=== PATIENT | male | born 1965 | race Caucasian/White ===

== ENCOUNTER → 2016-12-23 | Outpatient (CLI) | payer BC ==
[~2016-12-23] MED LIST: ALPR1TAB3 PO; CLX20 PO; DSY100 PO; FLM4 PO; IBUP-1428 PO; PHEN-876 PO; THIA100T11 PO
[2016-12-23 18:14] LABS: ALT/SGPT 48 U/L (12-78); AST/SGOT 29 U/L (15-37); BLOOD UREA NITROGEN 15 mg/dl (7-18); BUN/CREATININE RATIO 14.8 (10-20); CALCIUM 9.3 mg/dl (8.5-10.1); CARBON DIOXIDE 29 mmol/L (21-32); CHLORIDE 103 mmol/L (98-107); GLUCOSE 100 mg/dl (70-99); POTASSIUM 4.7 mmol/L (3.5-5.1); SODIUM 141 mmol/L (136-145)
[2016-12-23 18:22] LABS: HEMATOCRIT 45.9 % (42-52); MEAN CELL VOLUME 95.8 fL (80-100); MEAN CORPUSCULAR HEMOGLOBIN 33.8 pg (25-34); MEAN CORPUSCULAR HGB CONC 35.3 g/dl (32-36); MEAN PLATELET VOLUME 10.9 fL (7.4-10.4); PLATELET COUNT 141 K/uL (130-400); RED BLOOD COUNT 4.79 M/uL (4.7-6.1)
[2016-12-23 18:25] LABS: ALB/GLOB RATIO 1.2 (0.9-2); ALKALINE PHOSPHATASE 76 U/L (45-117)
== END | disposition home or self-care (01) ==
LOC: C.LABMFLN 12:16
PROVIDERS: ATTEND Family Medicine
DX: R53.83 Other fatigue (principal)

== ENCOUNTER 2022-12-17 07:06 | Observation (INO) ==
[2022-12-17] MEDS ORDERED: XYLOCAINE 1%/SOD BICARB 20 ML VIAL INFIL ONE (07:17)
--- NOTE | 2022-12-17 07:18 | Emergency Department Note ---
History of Present Illness General Chief complaint: Syncope Stated complaint: FALL, CONFUSION, LAC TO HEAD Time Seen by Provider: 12/17/22 07:07 History of Present Illness This is a 57-year-old male that presents to the emergency department via EMS for evaluation of lacerations to the right side of the face, occipital region of the head and altered mental status/confusion. Per EMS the patient was found in the library at his place of employment with a laceration to the right eyebrow region, occipital region of his head and seemed to be confused. EMS were summoned and he was brought here for evaluation. The patient notes he does not recall the events leading up to him being here today. He recalls making it to work and clocking in but then does not remember anything after that. He does not remember any fall. Patient denies any preceding infectious symptoms or fever/chills. Patient denies any weakness. Home Medications Medication Instructions Recorded Confirmed Type ascorbic acid (vitamin C) 250 mg 250 mg PO DAILY 08/12/21 04/13/22 History tablet cholecalciferol (vitamin D3) 25 25 mcg PO DAILY 08/12/21 04/13/22 History mcg (1,000 unit) capsule zinc 50 mg tablet 50 mg PO DAILY 08/12/21 04/13/22 History acetaminophen 650 mg 1,300 mg PO Q12H #120 tabs 04/13/22 04/13/22 Rx tablet,extended release (Tylenol Arthritis Pain) multivitamin (Daily Multi-Vitamin 1 tab PO DAILY #30 tabs 04/13/22 04/13/22 Rx tablet) naproxen 500 mg tablet (Naprosyn) 500 mg PO BID #60 tabs 04/13/22 04/13/22 Rx cyclobenzaprine 10 mg tablet 10 mg PO BID #60 tabs 05/25/22 Rx Allergies Allergy/AdvReac Type Severity Reaction Status Date / Time Penicillins Allergy Unknown . Verified 04/13/22 15:23 Past Med/Surg History Surgical History History of colonoscopy Family History Mother COPD (chronic obstructive pulmonary disease) Father Pancreatic cancer Grandfather (Paternal) No problems noted. Grandfather (Maternal) Lung cancer Other Myocardial infarction Denies family history of Prostate cancer Breast cancer Colorectal cancer Hypertension Social History Smoking Status: Never smoker Second Hand Exposure: No; Hx Alcohol Use: Yes Alcohol type: beer and hard liquor Alcohol Intake Frequency: 2-3 x/Week Hx Substance Use: No Preferred Language: Urdu Communication Ability: Effective Hearing Ability: Normal Color Depositing Machine Tender Required: No Beliefs That Will Affect Care: None marital status: Current Living Situation: Spouse current occupational status: employed How many Children do You have: 1 How many Children do You have Comment: 1 biological son and 3 step daughters Feels Safe at Home: Yes Childhood Exposure to Second-Hand Smoke: Yes Seatbelt Use: always Sunscreen Use: No Review of Systems A total of 10 systems reviewed and were otherwise negative Physical Exam Vital Signs Vital Signs - 24 hr 12/17/22 07:01 12/17/22 07:15 12/17/22 07:16 Temperature 36.4 C L Temperature Source Oral Pulse Rate 74 Pulse Rate from SpO2 Sensor Pulse Rhythm Regular Pulse Strength Normal Respiratory Rate 16 Respiratory Effort / Characteristics Non-Labored Spontaneous Respiratory Depth Normal Respiratory Pattern Regular Blood Pressure 144/85 H Blood Pressure Mean 104 Blood Pressure Position Sitting Pulse Oximetry 99 99 99 Oxygen Delivery Method Room Air Room Air Room Air Oxygen Flow Rate 0 Sepsis Recent Fever Within 48 Hours No Sepsis New/Unexplained Change in Mental Status Yes Sepsis Action Taken by Nursing No Action Required Oxygen Flow Rate - Titration 0 Pulse Oximetry Post Tiitration 99 12/17/22 08:44 12/17/22 08:43 12/17/22 09:00 Temperature Temperature Source Pulse Rate 66 66 76 Pulse Rate from SpO2 Sensor 67 75 Pulse Rhythm Pulse Strength Respiratory Rate 16 19 Respiratory Effort / Characteristics Respiratory Depth Respiratory Pattern Blood Pressure Blood Pressure Mean Blood Pressure Position Pulse Oximetry 99 98 Oxygen Delivery Method Oxygen Flow Rate Sepsis Recent Fever Within 48 Hours Sepsis New/Unexplained Change in Mental Status Sepsis Action Taken by Nursing Oxygen Flow Rate - Titration Pulse Oximetry Post Tiitration 12/17/22 09:30 Temperature Temperature Source Pulse Rate 74 Pulse Rate from SpO2 Sensor 79 Pulse Rhythm Pulse Strength Respiratory Rate 23 Respiratory Effort / Characteristics Respiratory Depth Respiratory Pattern Blood Pressure Blood Pressure Mean Blood Pressure Position Pulse Oximetry 98 Oxygen Delivery Method Room Air Oxygen Flow Rate Sepsis Recent Fever Within 48 Hours Sepsis New/Unexplained Change in Mental Status Sepsis Action Taken by Nursing Oxygen Flow Rate - Titration Pulse Oximetry Post Tiitration VITAL SIGNS - Vital signs reviewed. Stable and afebrile. GENERAL -57-year-old male appearing his stated age. Patient communicates well but at times seems to be looking about the exam room in a confused appearance. He does seem overall jittery/anxious. SKIN - Gross examination of the entire body surface demonstrates right eyebrow laceration and occipital scalp laceration. Laceration to the right eyebrow is in the shape of a "Y" with the branch portion on the medial aspect measuring approximately 2 cm overall. There is also a 2 cm laceration overlying the occipital region of the scalp favoring the right side. This is curvilinear in distribution. HEAD - Normocephalic, Atraumatic. No Mendez's Sign or Raccoon's Eyes. No depressed skull fractures palpable. EYES - PERRL with EOMI bilaterally. Without subconjunctival hemorrhage. Palpebral conjunctiva pink and moist with no injection. EARS - No deformities of external structures noted on gross examination bilaterally. No hemotympanum present. No tympanic perforation noted. Handle of malleus, umbo, cone of light, pars tensa/flaccid all easily visualized. NOSE - Midline and without cyanosis. No epistaxis or clear watery discharge noted. Septum midline without deviation. No septal hematoma noted. No overlying ecchymosis noted. MOUTH/OROPHARYNX - Without perioral cyanosis. Tongue midline with equal elevation of palate bilaterally. No blood noted in the oropharynx. No tonsillar hypertrophy, erythema, or exudates noted. No dental fractures noted. NECK - Cervical collar in place. No tenderness to palpation over the cervical spinous processes. No cervical paraspinal muscle tenderness noted. LUNGS - Chest wall symmetric without accessory muscle use, intercostals retractions, or central cyanosis. No flail chest or depressed fractures noted. No paradoxical chest wall movements noted. No tenderness to palpation across t he anterior and posterior chest lozano. No tenderness with deep inspiration noted against the examiner's applied pressure to the lateral chest lozano. Normal vesicular breath sounds CTA B/L. No wheezes, rales, or rhonchi appreciated. CARDIAC - RRR with S1/S2. No murmur, rubs, or gallops appreciated. ABDOMEN - Abdominal contour normal and without pulsations or visible masses. BS normoactive all four quadrants. No rebound tenderness or guarding noted. Negative Lyle's or Woodson Childers's Signs. No tenderness, palpable masses, hepatosplenomegaly, or ascites noted. EXTREMITIES - No gross deformities noted of the extremities. No tenderness to palpation upper or lower extremities. +5/5 strength noted in UE/LE bilaterally. NEUROLOGIC - Cranial nerves II through XII grossly intact. Sensory intact to light touch throughout. PSYCH -patient is alert and oriented to person and place but not time. He does not recall the year. Pt is very pleasant and interacts well with examiner. Course Administered Medications Discontinued Medications Acetaminophen (Acetaminophen 325 Mg Tab) 650 mg PO Q4H PRN PRN Reason: Pain or Fever Stop: 01/16/23 13:20 Last Admin: 12/17/22 13:51 Dose: 650 mg Documented By: ROS Sodium Chloride (Nss 1000ml) 1,000 mls @ 125 mls/hr IV .Q8H CARMENZA Stop: 01/16/23 10:14 Last Infusion: 12/17/22 17:52 Dose: 0 mls/hr Documented By: Admin: 12/17/22 10:33 Dose: 125 mls/hr Documented By: STEFFANIE Lidocaine HCl (Xylocaine 1%/Sod Bicarb 20 Ml Vial) 20 ml INFIL NOW ONE Stop: 12/17/22 07:18 Last Admin: 12/17/22 08:10 Dose: 20 ml Documented By: CONSTANTINO Medical Decision Making Laboratory Data 12/17/22 07:29 12/17/22 07:29 Lab Results 12/17/22 12/17/22 12/17/22 Range/Units 07:29 07:29 07:29 WBC 5.69 (4.8-10.8) K/ul RBC 5.11 (4.70-6.10) M/uL Hgb 16.6 (14.0-18.0) g/dl Hct 47.8 (42.0-52.0) % MCV 93.5 (80.0-100.0) fL MCH 32.5 (25.0-34.0) pg MCHC 34.7 (32.0-36.0) g/dL RDW Std Deviation 44.2 (36.4-46.3) fL RDW Coeff of Michele 12.7 (11.5-14.5) % Plt Count 169 (130-400) K/uL MPV 10.0 (9.4-12.4) fL Immature Gran % (Auto) 1.1 % Neut % (Auto) 53.3 % Lymph % (Auto) 27.8 % Traill % (Auto) 7.0 % Eos % (Auto) 9.7 % Baso % (Auto) 1.1 % Neut # (Auto) 3.04 (1.40-6.50) K/uL Lymph # (Auto) 1.58 (1.2-3.4) K/uL Traill # (Auto) 0.40 (0.11-0.59) K/uL Eos # (Auto) 0.55 H (0-0.50) K/uL Baso # (Auto) 0.06 (0-0.2) K/uL Immature Gran # (Auto) 0.06 (0.01-0.20) K/uL PT (9.0-12.0) Seconds INR (0.9-1.1) APTT (21.0-31.0) Seconds PTT Ratio Sodium 141 (136-145) mmol/L Potassium 4.2 (3.5-5.1) mmol/L Chloride 106 (98-107) mmol/L Carbon Dioxide 26 (21-32) mmol/L Anion Gap 9 (3-11) BUN 13 (6-23) mg/dl Creatinine 1.25 (0.6-1.4) mg/dl Est Cr Clr Drug Dosing 67.8 ml/min Est GFR ( Amer) 72.6 ml/min Est GFR (Non-Af Amer) 62.6 ml/min BUN/Creatinine Ratio 10.4 (10-20) Glucose 102 H (70-99(Fasting)) mg/dl Calcium 9.3 (8.5-10.1) mg/dl Total Bilirubin 0.6 (0.2-1.0) mg/dl AST 18 (13-39) U/L ALT 15 (7-52) U/L Alkaline Phosphatase 80 (34-104) U/L Troponin I High Sens 5.7 (0-20) pg/ml Total Protein 7.3 (6.0-8.3) gm/dl Albumin 4.3 (3.4-5.0) gm/dl Globulin 3.0 (2.5-4.0) gm/dl Albumin/Globulin Ratio 1.4 (0.9-2) TSH (0.300-4.500) uIu/ml Ethyl Alcohol mg/dL < 10.0 (<10.0) mg/dl Adenovirus (PCR) (NotDetected) B. pertussis DNA (PCR) (NotDetected) B.parapertussis DNA PCR (NotDetected) C. pneumoniae DNA (PCR) (NotDetected) Coronavirus OC43 (PCR) (NotDetected) Coronavirus HKU1 (PCR) (NotDetected) Coronavirus 229E (PCR) (NotDetected) SARS-CoV-2 (PCR) (NotDetected) Coronavirus NL63 (PCR) (NotDetected) Human Metapneumovir PCR (NotDetected) Influenza Type A (PCR) (NotDetected) Influenza Type B (PCR) (NotDetected) M. pneumoniae (PCR) (NotDetected) Parainfluenza 1 (PCR) (NotDetected) Parainfluenza 2 (PCR) (NotDetected) Parainfluenza 3 (PCR) (NotDetected) Parainfluenza 4 (PCR) (NotDetected) RSV (PCR) (NotDetected) Entero/Rhino (PCR) (NotDetected) 12/17/22 12/17/22 12/17/22 Range/Units 07:29 07:29 09:31 WBC (4.8-10.8) K/ul RBC (4.70-6.10) M/uL Hgb (14.0-18.0) g/dl Hct (42.0-52.0) % MCV (80.0-100.0) fL MCH (25.0-34.0) pg MCHC (32.0-36.0) g/dL RDW Std Deviation (36.4-46.3) fL RDW Coeff of Michele (11.5-14.5) % Plt Count (130-400) K/uL MPV (9.4-12.4) fL Immature Gran % (Auto) % Neut % (Auto) % Lymph % (Auto) % Traill % (Auto) % Eos % (Auto) % Baso % (Auto) % Neut # (Auto) (1.40-6.50) K/uL Lymph # (Auto) (1.2-3.4) K/uL Traill # (Auto) (0.11-0.59) K/uL Eos # (Auto) (0-0.50) K/uL Baso # (Auto) (0-0.2) K/uL Immature Gran # (Auto) (0.01-0.20) K/uL PT 10.8 (9.0-12.0) Seconds INR 1.0 (0.9-1.1) APTT 22.2 (21.0-31.0) Seconds PTT Ratio 0.8 Sodium (136-145) mmol/L Potassium (3.5-5.1) mmol/L Chloride (98-107) mmol/L Carbon Dioxide (21-32) mmol/L Anion Gap (3-11) BUN (6-23) mg/dl Creatinine (0.6-1.4) mg/dl Est Cr Clr Drug Dosing ml/min Est GFR ( Amer) ml/min Est GFR (Non-Af Amer) ml/min BUN/Creatinine Ratio (10-20) Glucose (70-99(Fasting)) mg/dl Calcium (8.5-10.1) mg/dl Total Bilirubin (0.2-1.0) mg/dl AST (13-39) U/L ALT (7-52) U/L Alkaline Phosphatase (34-104) U/L Troponin I High Sens (0-20) pg/ml Total Protein (6.0-8.3) gm/dl Albumin (3.4-5.0) gm/dl Globulin (2.5-4.0) gm/dl Albumin/Globulin Ratio (0.9-2) TSH 3.400 (0.300-4.500) uIu/ml Ethyl Alcohol mg/dL (<10.0) mg/dl Adenovirus (PCR) Not Detected (NotDetected) B. pertussis DNA (PCR) Not Detected (NotDetected) B.parapertussis DNA PCR Not Detected (NotDetected) C. pneumoniae DNA (PCR) Not Detected (NotDetected) Coronavirus OC43 (PCR) Not Detected (NotDetected) Coronavirus HKU1 (PCR) Not Detected (NotDetected) Coronavirus 229E (PCR) Not Detected (NotDetected) SARS-CoV-2 (PCR) Not Detected (NotDetected) Coronavirus NL63 (PCR) Not Detected (NotDetected) Human Metapneumovir PCR Not Detected (NotDetected) Influenza Type A (PCR) Not Detected (NotDetected) Influenza Type B (PCR) Not Detected (NotDetected) M. pneumoniae (PCR) Not Detected (NotDetected) Parainfluenza 1 (PCR) Not Detected (NotDetected) Parainfluenza 2 (PCR) Not Detected (NotDetected) Parainfluenza 3 (PCR) Not Detected (NotDetected) Parainfluenza 4 (PCR) Not Detected (NotDetected) RSV (PCR) Not Detected (NotDetected) Entero/Rhino (PCR) DETECTED A* (NotDetected) Imaging Data Radiologist's Impression: Cervical Spine CT 12/17/22 07:15 CT cervical spine wo con CLINICAL HISTORY: fall, altered mental status TECHNIQUE: Multidetector row helical CT of the cervical spine was performed without administration of intravenous contrast. Coronal and sagittal reformations were obtained. Automated dose lowering techniques and/or adjustment according to patient size were utilized for this exam. Comparison: None available at the time of this dictation. FINDINGS: No acute fractures or subluxations are identified. Degenerative changes are seen in the visualized spine. The alignment is normal. Soft tissues are unremarkable. IMPRESSION: No evidence of acute bony injury. ACT 112: Negative or not required by law. Electronically signed by: Ezekiel Nicole M.D. 12/17/2022 7:52 AM Chest X-Ray 12/17/22 07:15 XR chest 1V portable CLINICAL HISTORY: fall, altered mental status COMPARISON STUDY: Chest radiograph and chest CT September 16, 2011. FINDINGS: Lung volumes are normal. Lungs are clear. There is no pneumothorax or pleural effusion. Cardiac size is normal. Mediastinal contours are normal. There is no evidence for pulmonary edema. IMPRESSION: No acute cardiopulmonary findings. ACT 112: Negative or not required by law. Electronically signed by: Dutch Aguirre M.D. 12/17/2022 7:[address] 12/17/22 07:15 CT OF THE HEAD WITHOUT CONTRAST CLINICAL HISTORY: fall, altered mental status COMPARISON STUDY: No previous studies for comparison. TECHNIQUE: Helical axial images of the head were obtained without IV contrast. Automated exposure control was utilized for the study. A dose lowering technique was utilized adhering to the principles of ALARA. FINDINGS: No acute intracranial hemorrhage, midline shift or mass effect is present. The ventricular system is unremarkable. The basal cisterns are patent. No extra-axial collections are present. There are no findings to suggest acute dural sinus thrombosis or acute territorial infarct. Right posterior scalp contusion and laceration is present. There is no calvarial fracture. Nasal bone deformities are chronic. There is mild sinus mucosal thickening. IMPRESSION: 1. No acute intracranial findings. 2. Right posterior scalp contusion and laceration. No calvarial fracture. ACT 112: Negative or not required by law. Electronically signed by: Dutch Aguirre M.D. 12/17/2022 8:20 AM MDM Narrative Patient was seen and evaluated as above in room B09. I did discuss presentation with EMS that accompany the patient. Some history was provided by them. Remainder of history obtained from the patient. Remainder of previous history obtained from significant other/daughters. The patient does seem to be altered on arrival and does not recall the year. He continues to repeat himself that he does not recall what caused him to fall. He continues to note that he must have struck his head. He notes a headache. Otherwise no pain. No chest pain or shortness of breath. Patient denies any back pain or abdominal pain. No numbness or tingling the extremities. His tongue protrudes midline without deviation. There is no deficit on examination. Low suspicion for CVA. We will also note that in the setting of visible head trauma thrombolytics are not indicated. After obtaining a thorough history and physical examination the above work up was performed. It is unclear if the patient sustained a mechanical fall and then struck his head and is now experiencing concussion symptoms or if there was a preceding event causing fall that is now leaving him with an altered mental state or if this is also in a postconcussive basis. I did ask the patient if I may reach out to family to establish a baseline and to review last known well time. He noted that would be a good idea and help provide phone numbers. I at 7:34 AM called his daughter Mayra and there was no answer initially. I then 1 minute later at 7:35 AM called the patient's significant other Pauline. No answer. I then received a phone call back at 8:03 AM from Mayra. We discussed plan of care. She noted that this does seem to be an altered baseline compared to her father's baseline. She last talked to her dad about 2 nights ago. He seemed fine at that time. She does note that he had a similar presentation about 1 year ago when he had COVID and sustained a fall and had altered mental status. I then received a phone call back from the patient's significant other at 8:31 AM. She notes that when he went to bed last night around 9:30 PM and he seemed fine. She did not see him upon awakening today and getting ready for work. Frequent reassessments of the patient were completed. At no point did he display any neurovascular deficits. I did recommend that we repair the wounds to the face and head following CT scan of the head and neck. CT imaging was obtained and that is as above. No acute traumatic intracranial findings noted. C-spine is without fracture on CT scan. C-spine collar removed. Patient upon multiple reassessments seem to have some gradual improvement and began to note that he believes he fell in a bathroom 1 floor above the library and recalls seeing blood on the floor from his wounds and then went to clean this up and then believes he may have passed out or fallen again. Please refer to the procedure note below regarding wound repair. At this time with the patient having an episode of altered mental status status with head injury and with unknown mechanism/cause of fall I do believe that further evaluation and management in the inpatient setting is warranted. Patient amenable to this plan. Labs reveal no leukocytosis or concerning anemia. No emergent metabolic disturbance. Coags normal. Troponin within normal limits. TSH reveals euthyroid state. Urinalysis does not suggest infection. UDS pending. EtOH negative. Bio fire positive for rhinovirus and will note that the patient did have some chills upon reassessments later in his stay. Case discussed with the hospitalist service. Please refer to further documentation regarding his stay. EKG reveals normal sinus rhythm at a rate of 66 bpm. QTc 419. QRS 86. No ST elevation. Risks and benefits of performing primary wound closure versus no repair were discussed with the patient who verbalizes understanding. Verbal consent was obtained prior to performing the procedure. 2 cc of 1% buffered lidocaine without epinephrine was used to anesthetize the approximately 2 cm right eyebrow laceration. The wound was cleansed and prepped in the typical sterile fashion utilizing normal saline and Betadine. The wound was sterilely draped. Once proper anesthetization was established, the wound was further examined and demonstrated repairable laceration without deep structure injury or retained foreign body. The wound was copiously irrigated with normal saline and Betadine. The wound was closed using 4 simple, 6-0 nylon sutures with the wound edges being well approximated. Patient tolerated the procedure well. No complications were met. Attention was then turned to the scalp wound. The approximately 2 cm scalp wound was anesthetized with 3 cc of 1% buffered lidocaine without epinephrine. The wound was cleansed and prepped in the typical sterile fashion utilizing normal saline and Betadine. The wound was sterilely draped. Once proper anesthetization was established, the wound was further examined and demonstrated repairable scalp laceration without deep structure injury or retained foreign body. The wound was copiously irrigated with normal saline and Betadine. The wound was closed using 3 guerda with the wound edges being well approximated. Patient tolerated the procedure well. I recommend the facial sutures to be removed in 7 days. I recommend the scalp guerda be removed in 10 days. In the evaluation and treatment of this patient the following differential diagnoses entertained: CVA, TIA, meningitis, encephalitis, concussion, intracranial hemorrhage, skull fracture, among others. Impression & Plan Acute alteration in mental status, Facial laceration, Laceration of scalp, Rhinovirus Discharge Plan Visit Data Chief Complaint: Syncope Stated Complaint: FALL, CONFUSION, LAC TO HEAD ED Provider: Sofía Lozano ED Midlevel Provider: Leno Perez Discharge Problem: Acute alteration in mental status, Facial laceration, Laceration of scalp, Rhinovirus Patient Disposition: Admitted As Inpatient Condition: Good Discharge Instructions Interventions: ED Discharge Assessment Last Done: 12/17/22 12:51
--- NOTE | 2022-12-17 07:38 | XRay Report ---
XR chest 1V portable CLINICAL HISTORY: fall, altered mental status COMPARISON STUDY: Chest radiograph and chest CT September 16, 2011. FINDINGS: Lung volumes are normal. Lungs are clear. There is no pneumothorax or pleural effusion. Car diac size is normal. Mediastinal contours are normal. There is no evidence for pulmonary edema. IMPRESSION: No acute cardiopulmonary findings. ACT 112: Negative or not required by law. Electronically signed by: Dutch Aguirre M.D. 12/17/2022 7:37 AM
--- NOTE | 2022-12-17 07:54 | CT Scan Report ---
CT cervical spine wo con CLINICAL HISTORY: fall, altered mental status TECHNIQUE: Multidetector row helical CT of the cervical spine was performed without administration of intravenous contrast. Coronal and sagittal reformations were obtained. Automated dose lowering techn iques and/or adjustment according to patient size were utilized for this exam. Comparison: None available at the time of this dictation. FINDINGS: No acute fractures or subluxations are identified. Degenerative changes are seen in the visualized sp ine. The alignment is normal. Soft tissues are unremarkable. IMPRESSION: No evidence of acute bony injury. ACT 112: Negative or not required by law. Electronically signed by: Ezekiel Nicole M.D. 12/17/2022 7:52 AM
--- NOTE | 2022-12-17 08:22 | CT Scan Report ---
CT OF THE HEAD WITHOUT CONTRAST CLINICAL HISTORY: fall, altered mental status COMPARISON STUDY: No previous studies for comparison. TECHNIQUE: Helical axial images of the head were obtained without IV contrast. Automated exposure con trol was utilized for the study. A dose lowering technique was utilized adhering to the principles o f ALARA. FINDINGS: No acute intracranial hemorrhage, midline shift or mass effect is present. The ventricular system is unremarkable. The basal cisterns are patent. No extra-axial collections are present. There are no findings to suggest acute dural sinus thrombosis or acute territorial infarct. Right posterior scalp contusion and laceration is present. There is no calvarial fracture. Nasal bone deformities ar e chronic. There is mild sinus mucosal thickening. IMPRESSION: 1. No acute intracranial findings. 2. Right posterior scalp contusion and laceration. No calvarial fracture. ACT 112: Negative or not required by law. Electronically signed by: Dutch Aguirre M.D. 12/17/2022 8:20 AM
[2022-12-17 08:27] LABS: Basophils # (auto) 0.06 K/uL (0-0.2); Basophils % (auto) 1.1 %; Eosinophils # (auto) 0.55 K/uL (0-0.50); Eosinophils % (auto) 9.7 %; Hematocrit (blood only) 47.8 % (42.0-52.0); Hemoglobin 16.6 g/dl (14.0-18.0); Immature Granulocytes # (auto) 0.06 K/uL (0.01-0.20); Immature Granulocytes % (auto) 1.1 %; Lymphocytes # (auto) 1.58 K/uL (1.2-3.4); Lymphocytes % (auto) 27.8 %; Mean Corpuscular Hemoglobin 32.5 pg (25.0-34.0); Mean Corpuscular Hgb Conc 34.7 g/dL (32.0-36.0); Mean Corpuscular Volume 93.5 fL (80.0-100.0); Neutrophils # (auto) 3.04 K/uL (1.40-6.50); Neutrophils % (auto) 53.3 %; Platelet Count 169 K/uL (130-400); RDW Coefficient of Variation 12.7 % (11.5-14.5); RDW Standard Deviation 44.2 fL (36.4-46.3); Red Blood Count 5.11 M/uL (4.70-6.10); White Blood Count 5.69 K/ul (4.8-10.8)
[2022-12-17 08:50] LABS: Partial Thromboplastin Ratio 0.8; Partial Thromboplastin Time 22.2 Seconds (21.0-31.0); Prothrombin Time 10.8 Seconds (9.0-12.0)
[2022-12-17 09:45] LABS: Albumin Level 4.3 gm/dl (3.4-5.0); Bilirubin,Total 0.6 mg/dl (0.2-1.0); Calcium 9.3 mg/dl (8.5-10.1); Potassium 4.2 mmol/L (3.5-5.1)
[2022-12-17 09:51] LABS: Albumin Globulin Ratio 1.4 (0.9-2); BUN Creatinine Ratio 10.4 (10-20); Creatinine Clr Calc Pharmacy 67.8 ml/min; Est GFR (African American) 72.6 ml/min; Est GFR (Non-African American) 62.6 ml/min; Total Protein 7.3 gm/dl (6.0-8.3)
[2022-12-17 09:54] LABS: Troponin I High Sensitivity 5.7 pg/ml (0-20)
[2022-12-17] MEDS ORDERED: SODIUM CHLORIDE 0.9% 1000ML 1,000 ML IV SCH (10:15)
[2022-12-17 10:54] LABS: Bordetella parapertussis PCR Not Detected (NotDetected); Bordetella pertussis PCR Not Detected (NotDetected); Chlamydia pneumoniae PCR Not Detected (NotDetected); Coronavirus 229E PCR Not Detected (NotDetected); Coronavirus CoV-2 (COVID19)PCR Not Detected (NotDetected); Coronavirus HKU1 PCR Not Detected (NotDetected); Coronavirus NL63 PCR Not Detected (NotDetected); Coronavirus OC43PCR Not Detected (NotDetected); Human Metapneumovirus PCR Not Detected (NotDetected); Influenza A PCR Not Detected (NotDetected); Influenza B PCR Not Detected (NotDetected); Mycoplasma pneumoniae PCR Not Detected (NotDetected); Parainfluenza Virus 1 PCR Not Detected (NotDetected); Parainfluenza Virus 2 PCR Not Detected (NotDetected); Parainfluenza Virus 3 PCR Not Detected (NotDetected); Parainfluenza Virus 4 PCR Not Detected (NotDetected); Respiratory Syncytial VirusPCR Not Detected (NotDetected)
[2022-12-17 11:00] LABS: Adenovirus PCR Not Detected (NotDetected); Rhinovirus/Enterovirus PCR DETECTED (NotDetected)
[2022-12-17 12:17] LABS: Appearance Urine Clear (Clear); Bilirubin Urine Negative (Negative); Blood Urine Negative (Negative); Color Urine Yellow; Glucose Urine UA Negative (Negative); Ketones Urine Negative (Negative); Leukocyte Esterase Urine Negative (Negative); Nitrite Urine Negative (Negative); Protein Urine Negative (Negative); Specific Gravity Urine 1.018 (1.000-1.030); Urobilinogen Urine Negative (Negative)
[2022-12-17 13:09] LABS: Amphetamines+Metham, Urine Neg (Neg); Barbiturates, Urine Neg (Neg); Benzodiazepine, Urine Neg (Neg); Cocaine, Urine Pos (Neg); MDMA (Ecstacy), Urine Neg (Neg); Methadone, Urine Neg (Neg); Opiate, Urine Neg (Neg); Phencyclidine, Urine Neg (Neg)
[2022-12-17] MEDS ORDERED: ALUMINUM/MAGNESIUM SUSP 30 ML UDC PO PRN (13:21)
[2022-12-17] MEDS ORDERED: ONDANSETRON INJ 2 MG/ML 2 ML VIAL IV PRN (13:21)
[2022-12-17] MEDS ORDERED: ACETAMINOPHEN 325 MG TAB PO PRN (13:21)
--- NOTE | 2022-12-17 14:12 | History & Physical Report ---
Date of Service December 17, 2022 Assessment & Plan (1) Syncope: Plan: Acute traumatic syncope at least moderate risk Differential diagnosis could be related arrhythmia however it sounds like it may be most likely post micturition syncope or presyncope followed by a vasovagal syncope. Closed head injury with lacerations repaired which could related to a postconcussive syndrome Incidentally noted rhinovirus infection without systemic symptoms Initial screening test positive for cocaine awaiting confirmatory testing patient denies surreptitious drug use Patient be observed for arrhythmia if improved may likely be discharged later in the day Admission and Anticipated Discharge Date Admission Date: December 17, 2022 History of Present Illness Primary Care Provider: Maximiliano Shelton MD 57-year-old male brought in after being found in bathroom at [facility] with lacerations on his head. Patient had a syncopal event. Patient states he is prone to syncope if he has a severe event or anxiety. Patient states that he had not eaten any breakfast typically reports work at 5 AM and wakes at 3:30 AM. The patient ate a small dinner the night before. He took a swig or chug of Mucinex PM to try to help him sleep around 930 to 10 PM the day before admission. Patient reportedly was urinating when he became lightheaded fell forward and struck his head on something in the bathroom then landed on the ground. He then noticed blood on the ground, he did not completely pass out on that episode. he stood up noticed blood on his hands looked in the mirror saw blood in his face he started to wash his hands when he blacked out and likely fell backwards sustaining a posterior scalp laceration. In the emergency department these lacerations were repaired. imaging did not show any internal injury to his brain or calvarium and he was recommended for observation. Patient does have an unusual affect is a tangential historian and is unclear whether these are some issues that may be related to a concussive event or his personality. Patient says he will stay in the hospital no longer than 5 PM on the day of admission. We did arrange for an outpatient follow-up on Tuesday with primary care provider. Other than taking the Mucinex p.m. to help him sleep he denies any other medication ingestion did not take any of his prescribed Flexeril medication or use alcohol the day before admission Allergies Allergy/AdvReac Type Severity Reaction Status Date / Time Penicillins Allergy Unknown . Verified 04/13/22 15:23 Home Medications Medication Instructions Recorded Confirmed Type ascorbic acid (vitamin C) 250 mg 250 mg PO DAILY 08/12/21 04/13/22 History tablet cholecalciferol (vitamin D3) 25 25 mcg PO DAILY 08/12/21 04/13/22 History mcg (1,000 unit) capsule zinc 50 mg tablet 50 mg PO DAILY 08/12/21 04/13/22 History acetaminophen 650 mg 1,300 mg PO Q12H #120 tabs 04/13/22 04/13/22 Rx tablet,extended release (Tylenol Arthritis Pain) multivitamin (Daily Multi-Vitamin 1 tab PO DAILY #30 tabs 04/13/22 04/13/22 Rx tablet) naproxen 500 mg tablet (Naprosyn) 500 mg PO BID #60 tabs 04/13/22 04/13/22 Rx cyclobenzaprine 10 mg tablet 10 mg PO BID #60 tabs 05/25/22 Rx Past Med/Surg History Surgical History (Updated 04/13/22 @ 15:29 by KASEY Asif) History of colonoscopy Family History Mother COPD (chronic obstructive pulmonary disease) Father Pancreatic cancer Grandfather (Paternal) No problems noted. Grandfather (Maternal) Lung cancer Other Myocardial infarction Denies family history of Prostate cancer Breast cancer Colorectal cancer Hypertension Social History Smoking Status: Never smoker Second Hand Exposure: No; Hx Alcohol Use: Yes Alcohol type: beer and hard liquor Alcohol Intake Frequency: 2-3 x/Week Hx Substance Use: No Preferred Language: Citizen Of [place] Communication Ability: Effective Hearing Ability: Normal Physician Assistant Psychiatry Required: No Beliefs That Will Affect Care: None marital status: Current Living Situation: Spouse current occupational status: employed How many Children do You have: 1 How many Children do You have Comment: 1 biological son and 3 step daughters Feels Safe at Home: Yes Childhood Exposure to Second-Hand Smoke: Yes Seatbelt Use: always Sunscreen Use: No Physical Exam Physical Exam: Physical exam is awake alert appropriate he is a pressured speech. He has a sutured laceration to his right supraorbital ridge he has no periorbital ecchymosis or tenderness to the zygomatic arch he has a stapled laceration to his posterior scalp with surrounding tissue swelling. Cranial nerves are intact oropharynx is clear he is alert oriented x4 he has no peripheral decrements in strength or sensation . his cardiac exam is regular he has no carotid bruits his lungs are clear with good excursion his abdomen is NABS without masses or bruits. Extremities are without edema or bruises he has good pulses at the radial pulse and dorsalis pedis Results & Data Results & Data ([facility]) Vital Signs (Past 12 Hours) Vital Signs Temp Pulse Pulse Resp BP BP Pulse Ox 12/17/22 13:30 94 H 27 H 12/17/22 13:10 77 18 99 12/17/22 13:10 132/81 12/17/22 13:09 78 30 H 12/17/22 13:27 98.2 F 83 16 132/81 99 12/17/22 12:30 72 21 12/17/22 12:30 131/81 12/17/22 12:00 69 27 H 12/17/22 12:00 117/87 12/17/22 11:30 79 12 12/17/22 11:00 81 16 12/17/22 10:30 81 19 12/17/22 10:17 128/81 12/17/22 10:17 72 19 12/17/22 10:00 71 20 98 12/17/22 09:30 74 23 98 12/17/22 09:00 76 19 98 12/17/22 08:43 66 16 99 12/17/22 08:44 66 12/17/22 07:16 99 12/17/22 07:15 99 12/17/22 07:01 97.5 F L 74 16 144/85 H 99 O2 Del Method O2 Flow Rate 12/17/22 13:30 12/17/22 13:10 12/17/22 13:10 12/17/22 13:09 12/17/22 13:27 Room Air 12/17/22 12:30 12/17/22 12:30 12/17/22 12:00 12/17/22 12:00 12/17/22 11:30 12/17/22 11:00 12/17/22 10:30 12/17/22 10:17 12/17/22 10:17 12/17/22 10:00 Room Air 12/17/22 09:30 Room Air 12/17/22 09:00 12/17/22 08:43 12/17/22 08:44 12/17/22 07:16 Room Air 0 12/17/22 07:15 Room Air 12/17/22 07:01 Room Air Laboratory Results Reviewed admission labs including CBC, coagulation studies, chemistry panel, urine tox screen, thyroid panel, troponin, urinalysis, MRSA nasal swab, and bio fire detecting rhinovirus Diagnostic Findings Cervical Spine CT 12/17/22 07:15 CT cervical spine wo con CLINICAL HISTORY: fall, altered mental status TECHNIQUE: Multidetector row helical CT of the cervical spine was performed without administration of intravenous contrast. Coronal and sagittal reformations were obtained. Automated dose lowering techniques and/or adjustment according to patient size were utilized for this exam. Comparison: None available at the time of this dictation. FINDINGS: No acute fractures or subluxations are identified. Degenerative changes are seen in the visualized spine. The alignment is normal. Soft tissues are unremarkable. IMPRESSION: No evidence of acute bony injury. ACT 112: Negative or not required by law. Electronically signed by: Ezekiel Nicole M.D. 12/17/2022 7:52 AM Chest X-Ray 12/17/22 07:15 XR chest 1V portable CLINICAL HISTORY: fall, altered mental status COMPARISON STUDY: Chest radiograph and chest CT September 16, 2011. FINDINGS: Lung volumes are normal. Lungs are clear. There is no pneumothorax or pleural effusion. Cardiac size is normal. Mediastinal contours are normal. There is no evidence for pulmonary edema. IMPRESSION: No acute cardiopulmonary findings. ACT 112: Negative or not required by law. Electronically signed by: Dutch Aguirre M.D. 12/17/2022 7:[address] 12/17/22 07:15 CT OF THE HEAD WITHOUT CONTRAST CLINICAL HISTORY: fall, altered mental status COMPARISON STUDY: No previous studies for comparison. TECHNIQUE: Helical axial images of the head were obtained without IV contrast. Automated exposure control was utilized for the study. A dose lowering technique was utilized adhering to the principles of ALARA. FINDINGS: No acute intracranial hemorrhage, midline shift or mass effect is present. The ventricular system is unremarkable. The basal cisterns are patent. No extra-axial collections are present. There are no findings to suggest acute dural sinus thrombosis or acute territorial infarct. Right posterior scalp contusion and laceration is present. There is no calvarial fracture. Nasal bone deformities are chronic. There is mild sinus mucosal thickening. IMPRESSION: 1. No acute intracranial findings. 2. Right posterior scalp contusion and laceration. No calvarial fracture. ACT 112: Negative or not required by law. Electronically signed by: Dutch Aguirre M.D. 12/17/2022 8:20 AM ECG Additional Comments: EKG reviewed sinus rhythm without acute ST or T wave changes Code Status & VTE Plan VTE Prophylaxis Plan VTE Prophylaxis will be ordered: Yes Reason for no VTE drug order: Contraindicated PG Care Time/CCT Total # of Minutes Spent Total Time Spent with Patient: Total time spent is greater than 50% in coordination of care (as documented) at patient's floor/unit and/or counseling patient: Coding Level of Care Code 57670 INT INP/OBS CARE 255MIN Diagnoses Syncope R55
--- NOTE | 2022-12-17 23:04 | Electrocardiogram Report ---
Test Reason : Blood Pressure : / mmHG Vent. Rate : 066 BPM Atrial Rate : 066 BPM P-R Int : 134 ms QRS Dur : 086 ms QT Int : 400 ms P-R-T Axes : 055 002 037 degrees QTc Int : 419 ms Normal sinus rhythm Normal ECG When compared with ECG of 16-SEP-2011 08:29, QT has lengthened Confirmed by Jaylen Murray ([id number]) on 12/17/2022 11:04:00 PM Referred By: REFERRED SELF Confirmed By:Braeden Murray
--- NOTE | 2022-12-18 08:43 | Discharge Summary ---
Date of Service December 17, 2022 Admission HPI Per Admitting Provider 57-year-old male brought in after being found in bathroom at [facility] with lacerations on his head. Patient had a syncopal event. Patient states he is prone to syncope if he has a severe event or anxiety. Patient states that he had not eaten any breakfast typically reports work at 5 AM and wakes at 3:30 AM. The patient ate a small dinner the night before. He took a swig or chug of Mucinex PM to try to help him sleep around 930 to 10 PM the day before admission. Patient reportedly was urinating when he became lightheaded fell forward and struck his head on something in the bathroom then landed on the ground. He then noticed blood on the ground, he did not completely pass out on that episode. he stood up noticed blood on his hands looked in the mirror saw blood in his face he started to wash his hands when he blacked out and likely fell backwards sustaining a posterior scalp laceration. In the emergency department these lacerations were repaired. imaging did not show any internal injury to his brain or calvarium and he was recommended for observation. Patient does have an unusual affect is a tangential historian and is unclear whether these are some issues that may be related to a concussive event or his personality. Patient says he will stay in the hospital no longer than 5 PM on the day of admission. We did arrange for an outpatient follow-up on Tuesday with primary care provider. Other than taking the Mucinex p.m. to help him sleep he denies any other medication ingestion did not take any of his prescribed Flexeril medication or use alcohol the day before admission Principal Diagnosis Post micturition syncope Laceration to right supraorbital ridge Laceration to occiput Discharge Exam Patient was seen later today he is awake alert appropriate. His family is at the bedside and confirms he is back to his baseline state. Discharge Data Allergies Allergy/AdvReac Type Severity Reaction Status Date / Time Penicillins Allergy Unknown . Verified 04/13/22 15:23 Consultations 12/17/22 09:35 ED Decision to Admit Stat Ordered Studies Cervical Spine CT 12/17/22 07:15 CT cervical spine wo con CLINICAL HISTORY: fall, altered mental status TECHNIQUE: Multidetector row helical CT of the cervical spine was performed without administration of intravenous contrast. Coronal and sagittal reformations were obtained. Automated dose lowering techniques and/or adjustment according to patient size were utilized for this exam. Comparison: None available at the time of this dictation. FINDINGS: No acute fractures or subluxations are identified. Degenerative changes are seen in the visualized spine. The alignment is normal. Soft tissues are unremarkable. IMPRESSION: No evidence of acute bony injury. ACT 112: Negative or not required by law. Electronically signed by: Ezekiel Nicloe M.D. 12/17/2022 7:52 AM Chest X-Ray 12/17/22 07:15 XR chest 1V portable CLINICAL HISTORY: fall, altered mental status COMPARISON STUDY: Chest radiograph and chest CT September 16, 2011. FINDINGS: Lung volumes are normal. Lungs are clear. There is no pneumothorax or pleural effusion. Cardiac size is normal. Mediastinal contours are normal. There is no evidence for pulmonary edema. IMPRESSION: No acute cardiopulmonary findings. ACT 112: Negative or not required by law. Electronically signed by: Dutch Aguirre M.D. 12/17/2022 7:[address] 12/17/22 07:15 CT OF THE HEAD WITHOUT CONTRAST CLINICAL HISTORY: fall, altered mental status COMPARISON STUDY: No previous studies for comparison. TECHNIQUE: Helical axial images of the head were obtained without IV contrast. Automated exposure control was utilized for the study. A dose lowering technique was utilized adhering to the principles of ALARA. FINDINGS: No acute intracranial hemorrhage, midline shift or mass effect is present. The ventricular system is unremarkable. The basal cisterns are patent. No extra-axial collections are present. There are no findings to suggest acute dural sinus thrombosis or acute territorial infarct. Right posterior scalp contusion and laceration is present. There is no calvarial fracture. Nasal bone deformities are chronic. There is mild sinus mucosal thickening. IMPRESSION: 1. No acute intracranial findings. 2. Right posterior scalp contusion and laceration. No calvarial fracture. ACT 112: Negative or not required by law. Electronically signed by: Dtuch Aguirre M.D. 12/17/2022 8:20 AM 12/17/22 07:15 CT cervical spine wo con Stat CT head/brain wo con Stat Hospital Course (1) Syncope: Acute traumatic syncope at least moderate risk post micturition syncope or presyncope followed by a vasovagal syncope. Closed head injury with lacerations to the right supraorbital ridge and posterior occiput, repaired in the ER, postconcussive syndrome Incidentally noted rhinovirus infection without systemic symptoms Initial screening test positive for cocaine awaiting confirmatory testing patient denies surreptitious drug use Patient was able to ambulate in the ICU. He had no observable arrhythmia during his hospital stay was discharged in the care of his family. He was given off work on 20 December for follow-up outpatient appointment with primary care provider prior to returning to work Patient was cautioned and educated about taking [id number] medications, & trying to ensure better sleep habits Total Time Total Time Spent Total Time Spent (In Minutes): Greater than 30 minutes were required Discharge Plan Discharge Items Patient Disposition: Home - Self-Care Reason For Visit: TRAUMATIC SYNCOPE Discharge Diagnosis: traumatic syncope lacerations with repair x 2 Condition on Discharge: Good Activity: Per Instructions section Activity Comment: rest and recover with possible concussion Non-emergency contact: Primary Care Provider Call non-emergency contact if: your symptoms worsen Follow-up/Referrals: Maximiliano Shelton MD [Primary Care Provider] - (Appointment scheduled on 12/20/22) Diet: Regular Addtl Attending Provider Instructions: As you may have a possible concussion is important to rest avoid stimulation consider keeping the room darkened now watch a lot of television or play computer games. Use Tylenol ibuprofen for headaches keep well-hydrated. Off work through your appointment on Tuesday, 20 December With regard to your lacerations keep them clean and dry you may shower try them gently with a towel you can use soap over them. If they become dry use antibiotic ointment. Either have your primary care provider or the ER take these stitches and guerda out within 1 week. You do have evidence of possibly having a viral infection, this is a common respiratory virus called rhinovirus. If you develop cold symptoms would be important that you not be around others as this is easily spread and causes upper respiratory-like symptoms. We recommended that you do not take any [id number] sleeping aids and to discuss things further with your primary care provider Pending Studies at Discharge: Yes Studies:: Final analysis of blood toxicology screen is pending at time of discharge Stand-Alone Forms: My [employer], Work/School Release, Smoking Cessation Medications and DC Order Prescriptions: Continued cyclobenzaprine 10 mg tablet 10 mg PO BID Qty: 60 0RF ascorbic acid (vitamin C) 250 mg tablet 250 mg PO DAILY zinc 50 mg tablet 50 mg PO DAILY cholecalciferol (vitamin D3) 25 mcg (1,000 unit) capsule 25 mcg PO DAILY multivitamin [Daily Multi-Vitamin] Tablet 1 tab PO DAILY Qty: 30 0RF naproxen [Naprosyn] 500 mg tablet 500 mg PO BID Qty: 60 2RF acetaminophen [Tylenol Arthritis Pain] 650 mg tablet extended release 1,300 mg PO Q12H Qty: 120 1RF Discharge Orders: Discharge Order (Routine); Ordered 12/17/22 Ordered By: Mynor Huber Admission Data Admit Date/Time: 12/17/22 10:00 Attending Provider: Mynor Huber Admit Provider: Mynor Huber Primary Care Provider: Maximiliano Shelton Other Providers: Mynor Huber Other Interventions: Discharge Summary Assessment (RN) Last Done: 12/17/22 16:58 Coding Level of Care Code INP/OBS EV SAME DAY LV 3,85MIN Diagnoses Syncope R55
[2022-12-19 22:33] LABS: Cocaine, Urine >15000 ng/mL (<100)
== END 2022-12-17 17:53 | disposition home or self-care (01) ==
LOC: 1E 07:06 → ED 07:06 → 1E 12:51